=== PATIENT | female | born 1975 ===

== ENCOUNTER 2024-12-11 07:04 | Emergency (ER) | payer BC, SELFPAY ==
[2024-12-11 07:12] VITALS: BP 115/92
[2024-12-11 07:31] LABS: % Basophils 0.5 % (0-2); % Immature Granulocytes 0.9 % (0-0.5); % Lymphocytes 7.8 % (20.5-51.1); % Monocytes 6.1 % (1.7-9.3); % Neutrophils 84.7 % (42.2-75.2); Absolute Lymphocytes 0.3 10^3/uL (1.2-3.4); Absolute Monocytes 0.3 10^3/uL (0.1-0.6); Absolute Neutrophils 3.6 10^3/uL (1.4-6.5); Hematocrit 38.1 % (37.0-47.0); Hemoglobin 13.2 g/dL (12.0-16.0); Mean Corp Hgb Conc. 34.6 g/dL (33.0-37.0); Mean Corpuscular Hgb 30.8 pg (27.0-31.0); Mean Corpuscular Volume 88.8 fL (81.0-99.0); Mean Platelet Volume 9.7 fL (7.4-10.4); Nucleated Red Blood Cells % 0 %; Platelet Count 170 10^3/uL (130-400); Red Blood Cell Count 4.29 10^6/uL (4.20-5.40); Red Cell Dist. Width 12.3 % (11.5-14.5); White Blood Cell Count 4.2 10^3/uL (4.8-10.8)
[2024-12-11 07:41] LABS: HCG, Serum Qualitative Screen Negative
[2024-12-11 07:42] LABS: ALT (SGPT) 98 U/L (0-35); AST (SGOT) 133 U/L (14-36); Albumin 4.3 g/dl (3.5-5.0); Alkaline Phosphatase 91 U/L (38-126); Blood Urea Nitrogen 10 mg/dl (7-17); Calcium 8.8 mg/dl (8.4-10.2); Carbon Dioxide 26 mmol/L (22-30); Chloride 98 mmol/L (98-107); Glucose 115 mg/dl (70-99); Potassium 3.9 mmol/L (3.5-5.1); Sodium 133 mmol/L (135-145); Total Bilirubin 0.4 mg/dl (0.2-1.3); eGFR > 60.00
[2024-12-11 07:53] LABS: Troponin I < 0.012 ng/ml
--- NOTE | 2024-12-11 09:25 | ED.GENMED ---
History of Present Illness
General
Chief Complaint: Abdominal Symptoms
Source: patient and spouse
Exam Limitations: none
Time Seen by Provider: 12/11/24 08:42
History of Present Illness
History of Present Illness:
This is a 49yo female who presents with feeling like she has an upper respiratory infection. Patient states she has had some sinus pressure, sore throat, runny nose and mild cough. Feels like she has had subjective fevers. She then started
vomiting and had noticed first bile but then blood. States she vomited a good amount of blood. No abdominal pain but feels like she has some pain in her chest when she lays back. She denies any melena or hematochezia. Denies hemoptysis.
Past History
Past History
ED Past Medical History: Hypothyroidism
ED Past Surgical History: Orthopedic and Other (Breast augmentation)
Phy Exam
Physical Exam
Physical Exam:
CONSTITUTIONAL Patient alert and oriented to person, place and time. Well-appearing. Vital signs reviewed.
HEAD atraumatic, normocephalic.
EYES eyelids normal to inspection, Extraocular muscles intact, Conjunctiva normal, Sclera normal.
NECK normal range of motion, Trachea midline, no jugular venous distention.
RESPIRATORY CHEST No respiratory distress noted, Chest expansion equal, Bilateral breath sounds clear.
CARDIOVASCULAR regular rate and rhythm, Heart sounds normal.
ABDOMEN abdomen nontender, Bowel sounds normal. No distention.
BACK normal inspection, no obvious deformities
UPPER EXTREMITY range of motion normal, Motor strength normal, no cyanosis, no edema.
LOWER EXTREMITY range of motion normal, Motor strength normal, no cyanosis, no edema.
NEURO Speech normal, No focal motor deficits, Rosie coma scale 15, Memory normal, Cranial Nerves intact to screening exam.
SKIN skin warm, dry, and normal in color.
Course
Orders/Labs/Results
Orders:
Orders
12/11/24 07:14
Electrocardiogram (*1) Urgent
Reason for Study: Abdominal Pain
12/11/24 07:15
EKG- Treatment ONCE
Test Result ONCE
12/11/24 07:23
Complete Blood Count/With Diff Urgent
Comprehensive Metabolic Panel Urgent
HCG, Serum Qualitative Screen Urgent
Troponin I Urgent
12/11/24 09:13
Pantoprazole [Protonix] 40 mg PO NOW STA
CR Chest - 2 Views Urgent
Comment:
Reason For Exam: cp, vomiting
12/11/24 09:41
COVID-19 Antigen Urgent
Source: Nasal Swab
Influenza A+B Rapid Molecular Urgent
MICHAEL Source: Nasal Swab
Specimen Description:
12/11/24 10:21
Sucralfate Suspension [Carafate Suspension] 1 gm PO NOW STA
Abnormal Lab Results
12/11/24
07:23
WBC 4.2 L 10^3/uL
(4.8-10.8)
Absolute Lymphs (auto) 0.3 L 10^3/uL
(1.2-3.4)
Immature Gran % 0.9 H %
(0-0.5)
Neutrophils % 84.7 H %
(42.2-75.2)
Lymphocytes % 7.8 L %
(20.5-51.1)
Sodium 133 L mmol/L
(135-145)
Glucose 115 H mg/dl
(70-99)
AST 133 H U/L
(14-36)
ALT 98 H U/L
(0-35)
12/11/24 07:23
12/11/24 07:23
Vital Signs
Initial and Last Documented VS:
Initial Vital Signs
Temp Pulse Resp BP Pulse Ox
98.0 F 104 16 115/92 98
12/11/24 07:12 12/11/24 07:12 12/11/24 07:12 12/11/24 07:12 12/11/24 07:12
Last Documented Vital Signs
Temp Pulse Resp BP Pulse Ox
98.0 F 84 16 108/67 98
12/11/24 07:12 12/11/24 09:38 12/11/24 09:38 12/11/24 09:38 12/11/24 09:45
MDM/Problems Addressed
Differential Diagnosis Includes:
Ev-Spencer tear, bleeding peptic ulcer disease, gastritis, esophagitis, COVID-19, influenza, pneumonia
MDM/Problems Addressed:
Hematemesis, influenza, esophagitis/gastritis
*Radiology
Radiology exam reviewed: all reviewed NAD by ED Provider
*Pulse Oximetry
Patient hypoxic: no
*EKG
Interpreted by ED Provider?: Yes
Interpretation: normal
Rate: normal
Rhythm: sinus
Coventry: normal axis
QRS Pattern: normal QRS
Ischemia: no ischemia
*Critical Care Note
Total Time (30-74mins, 75-104mins- exclusive of procedures): Not Applicable
Data Reviewed
Source: patient and significant other
Prescriptions/Medications Considered But Not Given:
Considered Tamiflu but patient is more than 2 days into the symptomatology, benefit limited
Patient Management
Escalation/DeEscalation of care consider admission/obs:
Positive for influenza. Suspect also esophagitis/gastritis. Chest x-ray and EKG unremarkable. Treat with PPI, Carafate, outpatient follow-up.
ED Attending Note
-
Portions of this chart may have been created with voice recognition software.� Occasional wrong word or��sound alike� substitutions may have occurred due to the inherent limitations of voice recognition software.
Discharge Plan
Departure
Patient Disposition: Home (Routine Discharge)
Date of Disposition: 12/11/24
Time of Disposition: 11:18
Patient with high blood pressure during this ER visit?: No
Discharge Problem:
Esophagitis, Influenza
Instructions: Flu, Esophagitis
Prescriptions:
New
pantoprazole [Protonix] 40 mg tablet,delayed release (DR/EC)
40 mg PO DAILY Qty: 30 0RF
Rx Instructions:
Please take 30 minutes prior to eating or drinking anything in the morning.
sucralfate [Carafate] 100 mg/mL suspension
10 ml PO QID Qty: 400 0RF
Referrals:
NONE,* [Family Provider] -
Activity Restrictions/Additional Instructions:
Please stick to a bland diet and drink plenty fluids. Please see your doctor in follow-up in next 3 to 5 days. If any symptoms persist, gastroenterology evaluation may be necessary as well. Return [facility] for shortness of breath, worsening
symptoms, intractable vomiting, vomiting blood, black stools or any other concerns
Interventions
Interventions:
*Risk Screen - Suicide Last Done: 12/11/24 07:12
*General Assessment Last Done: 12/11/24 09:39
*Neglect/Abuse Screening Last Done: 12/11/24 07:12
ED- Fall Risk Assessment Last Done: 12/11/24 09:40
*ED COVID-19 Vaccine History Last Done: 12/11/24 09:39
DS-Wviywf-[id number] Assessment Last Done: 12/11/24 09:45
Discharge Date and Time
Print Language: PARAGUAYAN
[2024-12-11 09:34] VITALS: BMI 24.5
[2024-12-11] MEDS: PROTONIX 40 MG PO (09:36)
[2024-12-11 09:38] VITALS: BP 108/67
[2024-12-11 10:12] LABS: COVID-19 Antigen Negative (Negative)
[2024-12-11] MEDS: CARAFATE SUSPENSION 1 GM PO (10:51)
== END 2024-12-11 11:35 | disposition home or self-care (01) ==
LOC: EMR 07:04
PROVIDERS: Emergency Medicine; EMERGENCY PHYSICIAN Emergency Medicine
DX: K20.91 Esophagitis, unspecified with bleeding (principal); J10.1 Influenza due to other identified influenza virus with other respiratory manifestations; E03.9 Hypothyroidism, unspecified; Z11.52 Encounter for screening for COVID-19
CPT/HCPCS: 99285; 71046; 80053; 84484; 84703; 85025; 87502; 87811; 93005